=== PATIENT | male | born 2000 | race Caucasian/White ===

== ENCOUNTER 2020-06-17 09:19 | Emergency (ER) | payer OTHER ==
[~2020-06-17] VITALS: Ht 182.9 cm; Wt 61.2 kg
== END 2020-06-17 16:02 | disposition home or self-care (01) ==
LOC: ER 09:19
DX: K40.90 Unilateral inguinal hernia, without obstruction or gangrene, not specified as recurrent (principal)

== ENCOUNTER 2021-08-10 16:08 | Emergency (ER) | payer OTHER ==
[~2021-08-10] VITALS: Ht 182.9 cm; Wt 60.8 kg
[2021-08-10] MEDS ORDERED: ZYRTEC10 M3 PO (16:45)
[2021-08-10] MEDS ORDERED: DUI500 PO (18:59)
== END 2021-08-10 19:15 | disposition home or self-care (01) ==
LOC: ER 16:08
DX: H61.22 Impacted cerumen, left ear (principal); H66.92 Otitis media, unspecified, left ear; H92.02 Otalgia, left ear; Z88.0 Allergy status to penicillin; Z88.6 Allergy status to analgesic agent

== ENCOUNTER 2021-08-21 16:40 | Emergency (ER) | payer OTHER ==
[~2021-08-21] VITALS: Ht 182.9 cm; Wt 61.2 kg
[~2021-08-21 16:40] MED LIST: DUI500 PO; ZYRTEC10 M3 PO
[2021-08-21] MEDS ORDERED: PERCOCET 5-3251 EACH PO (20:02)
== END 2021-08-21 20:58 | disposition home or self-care (01) ==
LOC: ER 16:40
DX: S20.219A Contusion of unspecified front wall of thorax, initial encounter (principal); W18.30XA Fall on same level, unspecified, initial encounter; Y93.89 Activity, other specified; Y92.018 Other place in single-family (private) house as the place of occurrence of the external cause; Y99.9 Unspecified external cause status; Z88.6 Allergy status to analgesic agent; Z88.0 Allergy status to penicillin